=== PATIENT | male | born 1950 | race Caucasian/White ===

== ENCOUNTER 2018-01-07 08:00 | Inpatient (IN) | payer OTHER ==
[~2018-01-07] VITALS: Ht 144.8 cm; Wt 71.7 kg
[~2018-01-07 08:00] MED LIST: CALCITRIOL0.5 MCG PO; CEFADROXIL500 MG PO; COMPAZINE25 MG; FLEXERIL PO; FOLIC ACID1 MG PO; GABAPENTIN400 MG PO; JANUVIA100 MG PO; LOSARTAN-HCTZ1 EAC2 PO; METFORMIN HCL500 MG PO; PAIN RELIEF500 M1 PO; PERCOCET 5-3251 EACH PO; PLAVIX75 MG PO; SINGULAIR10 MG PO; SYNTHROID137 MCG PO; TRAMADOL HCL50 MG PO; VITAMIN D31000 UNIT PO; XARELTO10 MG PO
[2018-01-16] MEDS ORDERED: PERCOCET 5-3251 EACH PO (15:32)
[2018-01-16] MEDS ORDERED: XARELTO10 MG PO (15:32)
[2018-01-16] MEDS ORDERED: DUI500 PO (15:32)
== END 2018-01-16 17:10 | DRG 470 ==
LOC: SURH 01-14 07:19 → O/R 01-14 07:19 → SURH 01-14 08:00
PROVIDERS: Orthopaedic Surgery
PROC: 02HV33Z Insertion of Infusion Device into Superior Vena Cava, Percutaneous Approach (ICD-10-PCS; 2018-01-14)
PROC: 0SR90JZ Replacement of Right Hip Joint with Synthetic Substitute, Open Approach (ICD-10-PCS; principal; 2018-01-14 13:45)
DX: M16.11 Unilateral primary osteoarthritis, right hip (principal); D62 Acute posthemorrhagic anemia; J45.998 Other asthma; M70.61 Trochanteric bursitis, right hip; E11.22 Type 2 diabetes mellitus with diabetic chronic kidney disease; I12.9 Hypertensive chronic kidney disease with stage 1 through stage 4 chronic kidney disease, or unspecified chronic kidney disease; N18.3 Chronic kidney disease, stage 3 (moderate)

== ENCOUNTER 2020-07-12 07:15 | Inpatient (IN) | payer OTHER ==
[~2020-07-12] VITALS: Ht 144.8 cm; Wt 54.4 kg
[~2020-07-12 07:15] MED LIST changes: +DUI500 PO
[2020-07-12] MEDS ORDERED: CALCITRIOL0.25 MCG PO (09:40)
[2020-07-21] MEDS ORDERED: DUI500 PO (16:09)
[2020-07-21] MEDS ORDERED: PERCOCET 5-3251 EACH PO (16:09)
[2020-07-21] MEDS ORDERED: ELIQUIS2.5 MG PO (16:09)
== END 2020-07-21 19:10 | DRG 470 ==
LOC: SURH 07-19 07:15 → O/R 07-19 07:47 → SURH 07-19 12:30 → SURG 07-19 15:12
PROVIDERS: ADMIT Orthopaedic Surgery; ATTEND Orthopaedic Surgery
PROC: 0SRC0J9 Replacement of Right Knee Joint with Synthetic Substitute, Cemented, Open Approach (ICD-10-PCS; principal; 2020-07-19 12:30)
DX: M17.11 Unilateral primary osteoarthritis, right knee (principal); D62 Acute posthemorrhagic anemia; E11.9 Type 2 diabetes mellitus without complications; E03.9 Hypothyroidism, unspecified; I12.9 Hypertensive chronic kidney disease with stage 1 through stage 4 chronic kidney disease, or unspecified chronic kidney disease; N18.2 Chronic kidney disease, stage 2 (mild); Z20.828 Contact with and (suspected) exposure to other viral communicable diseases